=== PATIENT | female | born 1975 | race Caucasian/White ===

== ENCOUNTER 2019-12-04 21:04 | Emergency (ER) | payer OTHER, SELFPAY ==
--- NOTE | ~2019-12-04 | XR_ITS ---
EXAMINATION: XR ankle RT 2V DATE: 12/04/2019 22:05 INDICATION: Right ankle fracture status post reduction. TECHNIQUE: 2 views of right ankle were obtained. COMPARISON: Right ankle radiographs at 9:13 PM FINDINGS: There is an oblique fracture of distal fibula. The distal fracture fragment demonstrates 7 mm posterior displacement. There is a coronal fracture of posterior malleolus with 4 mm offset at the distal articular surface. There is an oblique fracture of medial malleolus. The distal fracture frag ment demonstrates 3 mm lateral displacement. Talar dome is normal. There is an enthesophyte at planta r aspect of calcaneal tuberosity. There is ankle soft tissue swelling. Cast material is noted. IMPRESSION: 1. Trimalleolar ankle fracture with interval improvement in alignment. Reviewed, dictated and finalized at location A.
--- NOTE | ~2019-12-04 | XR_ITS ---
XR ankle RT min 3V 12/04/2019 21:21 Indication: Status post fall. Right ankle pain. Procedure: 3 views right ankle Comparison: No prior studies for comparison. Findings: There is a displaced bimalleolar fracture. The distal fibular fracture is laterally displac ed and angulated. Medial malleolar fracture is laterally displaced there is possible posterior malleo lar fracture. There is posterior subluxation of the talus with respect to the tibia. Impression: 1: Displaced bimalleolar fracture. Reviewed, dictated and finalized at location A. Impression: 1: Displaced bimalleolar fracture.
[2019-12-04 21:03] VITALS: BP 134/84; PULSE 92; RESP 18; TEMP 36.7; O2SAT 100
--- NOTE | 2019-12-04 21:10 | ED.LOWEXIN ---
HPI - Extremity Injury (Lower) General Chief Complaint: Extremity Injury, Lower Stated Complaint: r ankle pain Time Seen by Provider: 12/04/19 21:08 Source: RN notes reviewed History of Present Illness HPI Narrative: Patient presents emergency department from home via EMS for right ankle pain. Patient states that she was walking to her car when she slipped and her right ankle twisted underneath her and she felt a pop. She states she that since that time she is been able to walk on the right leg with noted deformity. Patient denies any other trauma or injury. She denies any numbness or tingling of the extremity. Related Data Allergies Allergy/AdvReac Type Severity Reaction Status Date / Time acetaminophen Allergy Intermediate Itching Verified 10/24/18 17:17 hydrocodone Allergy Intermediate Itching Verified 10/24/18 17:17 morphine Allergy Intermediate Itching Verified 10/24/18 17:17 Review of Systems Review of Systems: Narrative: Gen.: Denies fevers or chills Musculoskeletal: See HPI Neuro: Denies numbness, tingling, weakness Skin: Denies rash Endo: Denies DM PMFSH Past Medical History Medical History (Updated 12/04/19 @ 22:25 by Reynaldo Heard DO) Patient denies significant medical history Social History Social History (Updated 12/04/19 @ 21:11 by Reynaldo Heard DO) Smoking packs per day: 0.5 Smoking cigarettes per day: 10.0 Exam Narrative: Exam Narrative: APPEARANCE: No acute distress, nontoxic, resting in bed Eyes: EOMI HEENT: Normocephalic, atraumatic, RESPIRATORY: No respiratory distress MUSCULOSKELETAl: Diffuse tenderness palpation of the right ankle with deformity noted, no tenderness of the foot or proximal tibia, dorsalis pedis pulse 2+, neurovascular intact NEURO: Awake and alert. Following commands, speech normal, no focal deficits SKIN:: Warm, dry. Normal Color no rash or lesions Course Course Emergency Course: Discussed with Dr. Park presentation work-up. He reviewed the patient's x-rays. States patient may be discharged at this time with follow-up as an outpatient Discussed with patient results of workup and diagnosis. Discussed need for follow-up with primary care, proper use of medication, and reasons to return to the emergency department. Patient understands and agrees to current treatment plan. Patient states that she is allergic to [place] but can take Tylenol 3 Vital Signs Vital signs: Vital Signs Temperature 98.0 F 12/04/19 21:03 Pulse Rate 92 12/04/19 21:03 Respiratory Rate 18 12/04/19 21:03 Blood Pressure 134/84 12/04/19 21:03 Pulse Oximetry 100 12/04/19 21:03 Temperature 98.0 F 12/04/19 21:03 Pulse Rate 83 12/04/19 21:42 Respiratory Rate 18 12/04/19 21:42 Blood Pressure 124/57 L 12/04/19 21:42 Pulse Oximetry 100 12/04/19 21:42 Procedures Orthopedic Fracture Reduction Fracture #1: Side: right Fracture Reduction Location: tibia (Trimalleolar fracture) Analgesia: procedural sedation Pre-Procedure Neuro Vascular Exam: normal Technique: direct manipulation Post Reduction X-rays Demonstrate: anatomical reduction Post-reduction neuro exam: intact Post-reduction vascular exam: intact Splint Applied: Yes Patient Tolerated Procedure: well Orthopedic Splinting/Casting Injury #1: Side: right Lower Extremity Injury Location: ankle Lower Extremity Immobilizer: posterior splint and stirrup splint Splint: customized in ED Pre-Procedure Neuro Vascular Exam: normal Post-Procedure Neuro Vascular Exam: normal Other Orthopedic Equipment: crutches MDM - Extremity Injury (Lower) Imaging Data Attestation: I personally reviewed and interpreted this imaging study as follows: My impression: Right ankle postreduction film shows reduction of fracture dislocation with trimalleolar fracture present Discharge Plan Discharge Clinical Impression: Closed
[2019-12-04 21:42] VITALS: BP 124/57; PULSE 83; RESP 18; O2SAT 100
--- NOTE | 2019-12-04 21:44 | PC.NURSE ---
ERP in room to reduce R ankle.
[2019-12-04 22:49] VITALS: BP 122/72; PULSE 78; RESP 18; O2SAT 98
== END 2019-12-04 22:54 | disposition home or self-care (01) ==
PROVIDERS: Emergency Provider Emergency Medicine
DX: S82.851A Displaced trimalleolar fracture of right lower leg, initial encounter for closed fracture (principal); F17.210 Nicotine dependence, cigarettes, uncomplicated; X50.9XXA Other and unspecified overexertion or strenuous movements or postures, initial encounter
CPT/HCPCS: 27818; 73600; 73610; 96374; 99285; J3010

== ENCOUNTER 2019-12-09 00:41 | Day surgery (SDC) | payer OTHER, SELFPAY ==
[2019-12-08 10:51] VITALS: BMI 35.0
[2019-12-09] VITALS (7 sets, daily range): BP systolic 106–137; BP diastolic 62–86; PULSE 71–97; RESP 12–18; TEMP 36.1–36.8; O2SAT 95–100
--- NOTE | ~2019-12-09 | XR_ITS ---
XR surgery orthopedic 12/09/2019 13:37 Indication: Intraoperative fixation right ankle Procedure: 3 fluoroscopic views right ankle Comparison: 12/06/2019 Findings: Status post intraoperative reduction of bimalleolar fracture. There is a fibular sideplate with 5 screws. Fibula in anatomic alignment. 2 lag screws transfixing medial malleolar fracture which is an anatomic alignment. Ankle mortise intact. Impression: 1: Anatomic alignment of bimalleolar fracture status post intraoperative fixation. Reviewed, dictated and finalized at location A. Impression: 1: Anatomic alignment of bimalleolar fracture status post intraoperative fixati on.
--- NOTE | 2019-12-09 08:20 | ECG_ITS ---
Measurements Intervals [place] Rate: 85 P: 42 TN: 136 QRS: 27 QRSD: 87 T: 34 QT: 381 QTc: 454 Interpretive Statements SINUS RHYTHM EARLY PRECORDIAL R/S TRANSITION BORDERLINE ST-T WAVE ABNORMALITY- ANTERIOR LEADS BASELINE ARTIFACT- V4-V5 BORDERLINE ECG Electronically Signed On 12-09-2019 11:38:11 CDT by Jasson Bowman D.O.
--- NOTE | 2019-12-09 08:35 | WPDANESEPPF ---
Anes - Initial Pre Proc Eval Procedure: Operation Date: 12/09/19 12:00 Proposed Procedures p Open Reduction Internal Fixation Right Ankle - Jose Eduardo Park MD Date/Time: 12/09/19 08:35 Surgeon: Jose Eduardo Park MD Pre Op Diagnosis: displaced trimalleolar fx right ankle Patient Data Age: 44 Gender: F Height: 1.73 m Weight: 104.5 kg Allergies Allergy/AdvReac Type Severity Reaction Status Date / Time hydrocodone Allergy Intermediate Itching Verified 12/08/19 10:36 morphine Allergy Intermediate Itching Verified 12/08/19 10:36 Home Medications Medication Instructions Recorded Confirmed Type ibuprofen [IBU] 600 mg PO Q6H PRN #20 tablet 12/04/19 12/08/19 Rx acetaminophen 300 mg-codeine 30 mg 1 tablet PO Q6H PRN #14 tablet 12/06/19 12/08/19 Rx tablet escitalopram oxalate 20 mg tablet 20 mg PO HS 12/07/19 12/08/19 History Patient hx anesthesia problems: none Family hx anesthesia problems: none PMFSH Past Medical History Medical History (Updated 12/09/19 @ 08:36 by Darrel Magana MD) Anxiety Depression Diarrhea Dizziness Fall from other slipping, tripping, or stumbling (12/04/19) Fracture dislocation of ankle GERD (gastroesophageal reflux disease) Headache High cholesterol Obesity Patient denies significant medical history Vertigo Vision abnormalities Surgical History Surgical History (Updated 12/07/19 @ 08:27 by Melina Crowell, RT(R)) History of Dr. Ellis History of salpingectomy Bilateral, Dr. 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 Questions were solicited and answers provided to the satisfaction of the patient/family/POA.
--- NOTE | 2019-12-09 08:40 | WPDHPUPDATE1 ---
History and Physical Update Update Date/Time: 12/09/19 08:40 History and Physical has been reviewed, including an updated exam of the patient. There are NO changes in the patient's condition. Risks, benefits, and alternatives have been discussed and questions answered. Patient agrees to proceed with procedure.
[2019-12-09] MEDS: LACTATED RINGERS 1,000 ML 30 ML IV CONT (10:30)
[2019-12-09] MEDS: IBUPROFEN IV 800 MG/200 ML 800 MG/200 ML BAG 400 MG IVPB (12:00)
[2019-12-09] MEDS: ceFAZolin 2 GM/D5W 50 ML 2 GM/50 ML BAG IVPB (12:27)
--- NOTE | 2019-12-09 14:16 | PM.PROC ---
Procedure Note - Detailed Date of procedure: 12/09/19 Pre-op diagnosis: displaced trimalleolar fx right ankle Post-op diagnosis: same Procedure performed: Open reduction internal fixation right ankle trimalleolar fracture Description of procedure: Operative indications: Patient is a 44year-old woman who sustained an injury to the right ankle. Radiographs show distal fibular fracture with displacement. Medial malleolus fracture with displacement and posterior malleolus fracture. Widening of the ankle mortise noted. Patient presents for operative treatment. Full discussion of the risks, benefits and alternatives of surgery was had with the patient. Questions answered. Patient verbalizes understanding and wishes to proceed. What was done: After informed consent, the operative extremity was marked in the preoperative holding area. Patient received intravenous antibiotics. Patient was then taken to the operating room and underwent general anesthesia by the anesthesia team. Positioned supine on the operating room table with a soft bump under the ipsilateral hip. A time-out was performed confirming the patient, site of the surgery, operative plan. Right Lower extremity then prepped and draped in the usual sterile surgical fashion using ChloraPrep skin solution. Foot and ankle exsanguinated and a thigh tourniquet inflated to 250 mmHg. Longitudinal incision made over the lateral ankle distal fibula with a 15 blade knife. Hemostasis controlled with electrocautery. Full-thickness soft tissue flaps developed and the fascia was incised in line with the skin incision. Fracture identified and cleared with a dental pick, irrigation and rongeur. Fracture reduced and held with bone-holding clamp. Image intensification confirmed reduction of the fracture and the ankle mortise. Fixation achieved with a 3.5 millimeter fully-threaded cortical screw placed in lag technique across the fracture. Neutralization with a lateral plate with unicortical screws distal to fracture and bicortical screws proximal to the fracture. Good alignment and stability of the fracture noted. Image intensification used to confirm reduction of the fracture and placement of the hardware. Medial side then addressed. Longitudinal incision made with a 15 blade knife over the medial malleolus fracture. Hemostasis controlled with electrocautery. Fascia incised in line with skin incision. Periosteum cleared from the medial malleolus fracture. Medial side of the joint inspected and noted to have mild amount of trauma to the chondral surface. Thorough irrigation of the ankle joint and suctioned out. Fracture reduced and provisionally pinned. Fixation achieved with 4.0 mm partially threaded cancellous screws x2 placed in cannulated screw fashion. Image intensification confirmed reduction of the fracture and placement of the hardware. Stress of the ankle performed with good stability of the ankle mortise in all directions. Posterior malleolus noted to be reduced and stable. Wounds thoroughly irrigated with antibiotic solution. Fascia repaired with 00 Vicryl interrupted suture. Subcutaneous tissue repaired with 000 Monocryl interrupted suture and Skin approximated with bakari. Sterile dressings applied followed by bulky dressing and splint. Patient awoken from anesthesia, extubated and taken to the recovery room in stable condition. All sponge, needle and instrument counts correct at the end of the case. Palpable dorsalis pedis pulse noted prior to dressing. Implants: Biomet 1/3 tubular 6 hole plate with 4.0 mm screws x2, 3.5 mm screws x3. 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
== END 2019-12-09 15:45 | disposition home or self-care (01) ==
PROVIDERS: Visit Provider Orthopaedic Surgery
PROC: (CPT 27822; principal; 2019-12-09 12:00)
DX: S82.851A Displaced trimalleolar fracture of right lower leg, initial encounter for closed fracture (principal); E78.00 Pure hypercholesterolemia, unspecified; K21.9 Gastro-esophageal reflux disease without esophagitis; F41.8 Other specified anxiety disorders; W01.0XXA Fall on same level from slipping, tripping and stumbling without subsequent striking against object, initial encounter; F17.210 Nicotine dependence, cigarettes, uncomplicated; E66.9 Obesity, unspecified; Z68.36 Body mass index [BMI] 36.0-36.9, adult
CPT/HCPCS: 27822; 93005; C1713; J0690; J1100; J1741; J2250; J2405; J2704; J3010; J7120

== ENCOUNTER 2020-06-09 15:38 | Emergency (ER) | payer OTHER, SELFPAY ==
--- NOTE | ~2020-06-09 | XR_ITS ---
XR hand RT min 3V DATE: 06/09/2020 16:11 INDICATION: Right hand injury, pain at fifth metacarpal area TECHNIQUE: 3 views COMPARISON: None FINDINGS: No fracture or dislocation, periosteal reaction or bone destruction. IMPRESSION: Negative Reviewed, dictated and finalized at location A. IMPRESSION: Negative
[2020-06-09 15:46] VITALS: BP 139/85; PULSE 98; RESP 18; TEMP 36.8; O2SAT 98
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
== END 2020-06-09 16:34 | disposition home or self-care (01) ==
PROVIDERS: Emergency Provider Nurse Practitioner Family; PCP Family Medicine
DX: S63.91XA Sprain of unspecified part of right wrist and hand, initial encounter (principal); S66.911A Strain of unspecified muscle, fascia and tendon at wrist and hand level, right hand, initial encounter; V49.40XA Driver injured in collision with unspecified motor vehicles in traffic accident, initial encounter; F17.210 Nicotine dependence, cigarettes, uncomplicated; K21.9 Gastro-esophageal reflux disease without esophagitis; E78.00 Pure hypercholesterolemia, unspecified; F41.9 Anxiety disorder, unspecified; F32.9 Major depressive disorder, single episode, unspecified; E66.9 Obesity, unspecified; Z68.35 Body mass index [BMI] 35.0-35.9, adult
CPT/HCPCS: 73130; 99213; G0463

== ENCOUNTER 2021-03-25 11:30 | Outpatient (CLI) | payer OTHER, SELFPAY ==
--- NOTE | 2021-03-25 11:30 | ECG_ITS ---
Measurements Intervals [place] Rate: 76 P: 50 VA: 139 QRS: 23 QRSD: 93 T: 30 QT: 392 QTc: 443 Interpretive Statements SINUS RHYTHM LOW QRS VOLTAGE IN PRECORDIAL LEADS BASELINE ARTIFACT- II, III, AVL BORDERLINE ECG Electronically Signed On 03-25-2021 12:40:57 CDT by Jasson Bowman D.O.
== END 2021-03-25 11:31 | disposition home or self-care (01) ==
LOC: ANHSURGERY 11:34
PROVIDERS: PCP Family Medicine; Visit Provider Orthopaedic Surgery
DX: F17.200 Nicotine dependence, unspecified, uncomplicated (principal); Z01.818 Encounter for other preprocedural examination; R94.31 Abnormal electrocardiogram [ECG] [EKG]
CPT/HCPCS: 93005

== ENCOUNTER 2021-03-28 00:41 | Day surgery (SDC) | payer OTHER, SELFPAY ==
[2021-03-21 15:07] VITALS: BMI 36.8
--- NOTE | 2021-03-27 15:00 | WPDANESEPPF ---
Anes - Initial Pre Proc Eval Procedure: Operation Date: 03/28/21 07:30 Proposed Procedures p Right Ankle Arthroscopy with Debridement - Jose Eduardo Park MD s Removal Hardware Right Ankle - Jose Eduardo Park MD Date/Time: 03/27/21 15:00 Surgeon: Jose Eduardo Park MD Pre Op Diagnosis: Right Ankle Pain, Right Ankle Painful Hardware Patient Data Age: 45 Gender: F Height: 1.73 m Weight: 110 kg Allergies Allergy/AdvReac Type Severity Reaction Status Date / Time hydrocodone Allergy Intermediate Itching Verified 03/21/21 14:57 morphine Allergy Intermediate Itching Verified 03/21/21 14:57 Home Medications Medication Instructions Recorded Confirmed Type ibuprofen 600 mg tablet 600 mg PO Q6H PRN #60 tablet 12/14/19 03/21/21 Rx citalopram [Celexa] 40 mg PO HS 03/21/21 03/21/21 History lamotrigine 100 mg PO HS 03/21/21 03/21/21 History Patient hx anesthesia problems: none Family hx anesthesia problems: none PMFSH Past Medical History Medical History (Updated 03/19/21 @ 12:16 by Jose Eduardo Park MD) Anxiety Depression Diarrhea Dizziness Fall from other slipping, tripping, or stumbling (12/04/19) Fracture dislocation of ankle GERD (gastroesophageal reflux disease) Headache High cholesterol Obesity Painful orthopaedic hardware Patient denies significant medical history Traumatic arthritis of left ankle Vertigo Vision abnormalities Surgical History Surgical History History of Dr. Ellis History of salpingectomy Bilateral, Dr. 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 [employer] Gender identity (if verbalized by the patient): Female Anes - Eval Final PreProcedure Day of Procedure 03/27/21 15:00 Patient weight: obese Heart: regular rate and rhythm Lungs: clear to auscultation and normal air movement Airway: Mallampati scale class II Neurological: alert and oriented Last oral intake: >/= 8 hours ASA classification: III Emergent: no Anesthetic plan: proceed Anesthesia type and monitoring: general LMA Informed Consent: The patient's anesthetic plan and its attendant risks and benefits were discussed with the patient/family/POA. Questions were solicited and answers provided to the satisfaction of the patient/family/POA.
[2021-03-28] VITALS (8 sets, daily range): BP systolic 104–126; BP diastolic 54–75; PULSE 63–83; RESP 10–20; TEMP 36.6–36.9; O2SAT 94–100
--- NOTE | ~2021-03-28 | XR_ITS ---
EXAMINATION: XR surgery orthopedic DATE: 03/28/2021 08:24 INDICATION: Orthopedic instrumentation removal at the right ankle TECHNIQUE: 4 fluoroscopic spot images of the ankle were obtained during procedure performed by Dr. Thaddeus santillan. Radiologist was not present for the imaging or procedure. The amount of fluoroscopy time used during this procedure was 0.3 minutes. COMPARISON: 03/19/2021 FINDINGS: Intravenous internal fixation for an old healed trimalleolar fracture of the right ankle which is fix ed with a lateral plate and screws at the lateral malleolus and with 2 cannulated lag screws at the m edial malleolus. The fracture is healed in essentially anatomic alignment with a congruent ankle mort ise. Subsequent images demonstrate complete removal of the 2 legs screws at the medial malleolus with residual lucent screw tracks. The lateral plate and screws remain unchanged. No acute fracture. IMPRESSION: 1. Old healed internally fixed trimalleolar fracture in essentially anatomic alignment with fluorosco py utilized for removal of a pair of medial malleolar fixation screws. Reviewed, dictated and finalized at location A. IMPRESSION: 1. Old healed internally fixed trimalleolar fracture in essentially anatomic al ignment with fluoroscopy utilized for removal of a pair of medial malleolar fix ation screws.
--- NOTE | 2021-03-28 06:44 | WPDHPUPDATE1 ---
History and Physical Update Update Date/Time: 03/28/21 06:44 History and Physical has been reviewed, including an updated exam of the patient. There are NO changes in the patient's condition. Risks, benefits, and alternatives have been discussed and questions answered. Patient agrees to proceed with procedure.
[2021-03-28] MEDS: ACETAMINOPHEN 500 MG TABLET 1000 MG PO (07:15)
[2021-03-28] MEDS: KETOROLAC 15 MG/ML VIAL (*BKC) IV PUSH (07:15)
[2021-03-28] MEDS: LACTATED RINGERS 1,000 ML 30 ML IV CONT (07:16)
[2021-03-28] MEDS: ceFAZolin 2 GM/D5W 50 ML 2 GM/50 ML BAG IVPB (07:34)
--- NOTE | 2021-03-28 08:46 | SUR.PREOP ---
PT DOES NOT NEED CRUTCH TRAINING POST OP; WILL BE USING A SCOOTER POST OP. PT SPOKE W/ DR. GARCIA IN PREOP AREA RE:THIS AND GIVEN CONSENT TO USE SCOOTER POSTOP.
--- NOTE | 2021-03-28 09:26 | P.OP_ITS ---
Procedure Note - Detailed Date of Procedure 03/28/21 Pre-op Diagnosis Right Ankle Pain, Right Ankle Painful Hardware Post-op Diagnosis same Procedure Performed Right ankle arthroscopy with debridement, removal of hardware Surgeon Jose Eduardo Park MD Jr. 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 She has pain over the medial malleolus internal fixation. She also has anterior ankle pain and evidence of posttraumatic changes. She presents now for operative treatment. Findings Healed medial and lateral malleolus fractures. 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 Loose body in the anterolateral ankle joint with grade 3 degenerative changes lateral gutter. Grade 2 chondromalacia of the anterior talus. Anterior synovitis. Syndesmosis stable. Description of Procedure What was done: Patient identified in the preoperative holding. Informed consent given. Operative extremity marked. Patient received intravenous antibiotics. Patient brought to the operating room where underwent general anesthetic by anesthesia team. Positioned supine on operating room table. Time-out performed confirming the patient, site of the surgery and the plan. Right leg was then positioned with a posterior thigh roberto with the hip and knee flexed. Right ankle prepped and draped usual sterile surgical fashion using ChloraPrep skin solution. Hardware was addressed 1st. Utilizing the previous medial incision the distal aspect was made again with a 15 blade knife. Hemostasis controlled electrocautery. Dissection carried down of the medial malleolus. Two screws were identified. These were cannulated and guidepins were able to be placed in them. The screws removed. Screw holes were debrided with a curette. This was then thoroughly irrigated. Fluoroscopy confirmed removal of the hardware from the medial aspect. Soft tissue closed with 3 Monocryl interrupted suture. Skin approximated with 4 0 nylon running suture. The ankle arthroscopy was then performed. Ankle joint was infiltrated with saline from the anteromedial position. Eleven blade knife then used to incise the skin. Blunt penetration capsule. Camera and inflow were started. The ankle joint was inspected and the above findings were noted. Anterolateral working portal was stabbed wished with an 18 gauge needle for positioning followed by an 11 blade knife for the skin and blunt penetration capsule. 2.7 mm shaver was introduced and a synovectomy of the anterior joint was performed. Debridement of the medial lateral gutter were performed with the shaver. Grasper was then introduced and used to remove the loose body from the anterolateral portion of the joint which was just in for of the distal fibula. Soft tissues and smoothed with the shaver. Arthroscopic Wand was then introduced for hemostasis as well as to smooth the soft tissue and perform chondroplasty of the talar dome. 100 cc of irrigant was run through the ankle joint and suctioned out. Instruments removed. Skin closed with 4 nylon interrupted suture. Sterile dressing applied. The patient was then woken from anesthesia, extubated and taken to the recovery room in stable condition. All sponge, needle, instrument counts were correct at the end of the case. Estimated Blood Loss -5.0 Tourniquet Time 0 Drains No Packing No Pathology none sent Complications None Condition stable Disposition PACU
== END 2021-03-28 10:30 | disposition home or self-care (01) ==
PROVIDERS: PCP Family Medicine; Visit Provider Orthopaedic Surgery
PROC: (CPT 20680; principal; 2021-03-28 07:30)
PROC: (CPT 20680; 2021-03-28 07:30)
DX: T84.84XA Pain due to internal orthopedic prosthetic devices, implants and grafts, initial encounter (principal); M25.571 Pain in right ankle and joints of right foot; Z87.81 Personal history of (healed) traumatic fracture; E78.00 Pure hypercholesterolemia, unspecified; K21.9 Gastro-esophageal reflux disease without esophagitis; F41.8 Other specified anxiety disorders; F17.210 Nicotine dependence, cigarettes, uncomplicated; F12.90 Cannabis use, unspecified, uncomplicated; E66.9 Obesity, unspecified; Z68.37 Body mass index [BMI] 37.0-37.9, adult; Y83.8 Other surgical procedures as the cause of abnormal reaction of the patient, or of later complication, without mention of misadventure at the time of the procedure
CPT/HCPCS: 20680; 29897; A9270; J0690; J1040; J1100; J1885; J2250; J2405; J2704; J3010; J7120

== ENCOUNTER 2022-12-27 16:17 | Emergency (ER) | payer OTHER, SELFPAY ==
[2022-12-27 16:29] VITALS: BP 137/62; PULSE 93; RESP 16; TEMP 37.6; O2SAT 98
[2022-12-27 16:30] VITALS: BP 137/62; PULSE 93; RESP 16; TEMP 37.6; O2SAT 98
--- NOTE | 2022-12-27 16:38 | ED.URI ---
HPI - URI/Sore Throat General Chief Complaint: Upper Respiratory Infection Stated Complaint: 3 weeks cough, sore throat, pink eye Time Seen by Provider: 12/27/22 16:39 Source: patient and RN notes reviewed Mode of arrival: ambulatory Limitations: no limitations History of Present Illness HPI Narrative: 47-year-old female presents with concern for 3 week history sinus drainage, cough, sore throat. Reports she recently be and having redness, irritation, drainage from her left eye. She reports she tried to ?wait it out? but decided to be evaluated. MD elicited complaint: cough and sore throat Related Data Home Medications Medication Instructions Recorded Confirmed citalopram 40 mg tablet (Celexa) 40 mg PO HS 03/21/21 12/27/22 Allergies Allergy/AdvReac Type Severity Reaction Status Date / Time hydrocodone Allergy Intermediate Itching Verified 12/27/22 16:30 morphine Allergy Intermediate Itching Verified 12/27/22 16:30 Review of Systems Review of Systems: CONSTITUTIONAL: Denies malaise, chills, sweats, or fever. EYES: Denies visual changes. Reports left eye redness, irritation, discharge. ENT: Reports rhinorrhea, congestion, and sore throat. CARDIOVASCULAR: Denies chest pain, palpitations, or edema. RESPIRATORY: Reports cough. Denies dyspnea. GASTROINTESTINAL: Denies abdominal pain, nausea, vomiting, diarrhea SKIN: Denies rash or itching. MUSCULOSKELETAL: Denies myalgia. NEUROLOGIC: Denies headache. All systems reviewed & are unremarkable except as noted in HPI and below PMFSH Past Medical History Medical History Anxiety Depression Diarrhea Dizziness Encounter for Postoperative Care Fall from other slipping, tripping, or stumbling (12/04/19) Fracture dislocation of ankle GERD (gastroesophageal reflux disease) Headache High cholesterol Obesity Painful orthopaedic hardware Patient denies significant medical history Traumatic arthritis of left ankle Vertigo Vision abnormalities Surgical History Surgical History History of Dr. Ellis History of salpingectomy Bilateral, Dr. 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 There is no relevant family history pertinent to the presenting complaint Exam Narrative: GENERAL: Well-appearing, well-nourished, and in no acute distress. HEAD: Normocephalic EYES: PERRLA, left sclera and conjunctivae injected, scant yellow drainage noted ENT: Nares clear, turbinates edematous and erythematous. Mucous membranes moist. TM pearly neal with dull light reflex bilaterally; no tragal tenderness. Oropharynx erythematous without lesions. Tonsils not enlarged and without exudate, no drooling, no hoarseness, no trismus, uvula midline. NECK: Supple. No lymphadenopathy CHEST: Clear to auscultation, breath sounds equal. No wheezing, rhonchi, rales, or stridor. No respiratory distress, speaks in full sentences. Cough noted HEART: Regular rate and rhythm. No murmur heard. SKIN: Warm, dry, no rash. NEURO: Alert and oriented x3. PSYCH: Normal mood and affect Course Course Emergency Course: Patient is aware
== END 2022-12-27 16:50 | disposition home or self-care (01) ==
PROVIDERS: Emergency Provider Nurse Practitioner; PCP Family Medicine
DX: J40 Bronchitis, not specified as acute or chronic (principal); H10.9 Unspecified conjunctivitis; F17.210 Nicotine dependence, cigarettes, uncomplicated
CPT/HCPCS: 99213; G0463

== ENCOUNTER 2023-08-03 17:18 | Emergency (ER) | payer OTHER, SELFPAY ==
[2023-08-03 17:34] VITALS: BP 133/79; PULSE 114; RESP 16; TEMP 38.8; O2SAT 99
--- NOTE | 2023-08-03 17:39 | ED.URI ---
HPI - URI/Sore Throat General Chief Complaint: Upper Respiratory Infection Stated Complaint: left side neck robert,headache,bodyaches Time Seen by Provider: 08/03/23 18:10 Source: patient and RN notes reviewed Mode of arrival: ambulatory Limitations: no limitations History of Present Illness HPI Narrative: 47-year-old female presents with concern for 2 week history of left-sided lymph node tenderness, sinus pain and pressure. She denies sinus drainage. She reports she started having worsening left-sided lymph node pain today with fever. MD elicited complaint: sore throat Related Data Home Medications Medication Instructions Recorded Confirmed citalopram 40 mg tablet (Celexa) 40 mg PO HS 03/21/21 08/03/23 Allergies Allergy/AdvReac Type Severity Reaction Status Date / Time hydrocodone Allergy Intermediate Itching Verified 08/03/23 17:36 morphine Allergy Intermediate Itching Verified 08/03/23 17:36 Review of Systems Review of Systems: CONSTITUTIONAL: Reports malaise. Denies chills, sweats, or fever. EYES: Denies visual changes, redness, or discharge. ENT: Reports rhinorrhea,otalgia and sore throat. Reports sinus congestion and pain, left lymph node tenderness CARDIOVASCULAR: Denies chest pain, palpitations, or edema. RESPIRATORY: Denies cough. Denies dyspnea. GASTROINTESTINAL: Denies abdominal pain, nausea, vomiting, diarrhea SKIN: Denies rash or itching. MUSCULOSKELETAL: Denies myalgia. NEUROLOGIC: Denies headache. All systems reviewed & are unremarkable except as noted in HPI and below PMFSH Past Medical History Medical History Anxiety Depression Diarrhea Dizziness Encounter for Postoperative Care Fall from other slipping, tripping, or stumbling (12/04/19) Fracture dislocation of ankle GERD (gastroesophageal reflux disease) Headache High cholesterol Obesity Painful orthopaedic hardware Patient denies significant medical history Traumatic arthritis of left ankle Vertigo Vision abnormalities Surgical History Surgical History History of Dr. Ellis History of salpingectomy Bilateral, Dr. 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 There is no relevant family history pertinent to the presenting complaint Exam Narrative: GENERAL: Well-appearing, well-nourished, and in no acute distress. HEAD: Normocephalic EYES: PERRLA, conjunctivae clear ENT: Nares clear. Mucous membranes moist. Sinus tenderness. TM pearly neal with dull light reflex bilaterally; no tragal tenderness. Oropharynx not erythematous without lesions. Tonsils not enlarged and without exudate, no drooling, no hoarseness, no trismus, uvula midline. NECK: Supple. Left cervical lymphadenopathy CHEST: Clear to auscultation, breath sounds equal. No wheezing, rhonchi, rales, or stridor. No respiratory distress, speaks in full sentences. HEART: Regular rate and rhythm. No murmur heard. SKIN: Warm, dry, no rash. NEURO: Alert and oriented x3. PSYCH: Normal mood and affect Course Course Emergency Course: Patient is aware of diagnosis, understands and agrees to treat
== END 2023-08-03 18:21 | disposition home or self-care (01) ==
PROVIDERS: Emergency Provider Nurse Practitioner; PCP Family Medicine
DX: J32.9 Chronic sinusitis, unspecified (principal); F17.210 Nicotine dependence, cigarettes, uncomplicated; K21.9 Gastro-esophageal reflux disease without esophagitis; E78.00 Pure hypercholesterolemia, unspecified; E66.9 Obesity, unspecified; Z68.36 Body mass index [BMI] 36.0-36.9, adult; M19.172 Post-traumatic osteoarthritis, left ankle and foot; T14.90XS Injury, unspecified, sequela; X58.XXXS Exposure to other specified factors, sequela; F41.9 Anxiety disorder, unspecified; F32.A Depression, unspecified
CPT/HCPCS: 99213; G0463

== ENCOUNTER 2025-01-02 17:03 | Emergency (ER) | payer OTHER, SELFPAY ==
[2025-01-02 17:25] VITALS: BP 143/78; PULSE 80; RESP 18; TEMP 36.6; O2SAT 99
[2025-01-02 17:40] LABS: EDSTREPNEGPOS1 Negative (Negative)
--- NOTE | 2025-01-02 17:47 | ED_ITS ---
HPI - URI/Sore Throat General Chief Complaint: Upper Respiratory Infection Stated Complaint: eye irritation Time Seen by Provider: 01/02/25 17:30 Source: patient and RN notes reviewed Mode of arrival: ambulatory Limitations: no limitations History of Present Illness HPI Narrative: 49-year-old female presents [facility] complaining of upper respiratory symptoms for approximately 1 week. Patient stated started with sinus pressure and congestion. She stated on Thursday her symptoms got suddenly worse and she developed a sore throat, dry hacking cough, worsening sinus pressure. Patient states today she also noticed that her left eye and has developed increased redness and swelling along with discharge. She denies any vision changes, or blurry vision. Denies any chest pain or shortness of breath, fever, body aches, chills, nausea, vomiting, diarrhea. Patient also reports itchy ears. Patient has been taking DayQuil NyQuil [id number] with some relief. Related Data Home Medications ?Medication ?Instructions ?Recorded ?Confirmed ?Last Taken ?Type citalopram 40 mg tablet (Celexa) 40 mg PO HS 03/21/21 01/02/25 Unknown History Allergies Allergy/AdvReac Type Severity Reaction Status Date / Time hydrocodone Allergy Intermediate Itching Verified 01/02/25 17:24 morphine Allergy Intermediate Itching Verified 01/02/25 17:24 Review of Systems Review of Systems: CONSTITUTIONAL: Denies fever, body aches, chills, or sweats. EYES: Denies visual changes, positive for left eye redness and discharge. ENT: Denies rhinorrhea, or otalgia. Positive for congestion, sore throat, ear fullness, itchy ears, voice hoarseness, sinus pressure. CARDIOVASCULAR: Denies chest pain, palpitations, or edema. RESPIRATORY: Positive for dry cough, negative for dyspnea. GASTROINTESTINAL: Denies abdominal pain, nausea, vomiting, or diarrhea. GENITOURINARY: Denies dysuria or hematuria. SKIN: Denies rash or itching. MUSCULOSKELETAL: Denies back pain, joint pain, or myalgia. NEUROLOGIC: Denies headache, numbness, or weakness. PSYCHIATRIC: Denies anxiety or depression. All other systems reviewed are negative, except as documented in HPI. [facility] Past Medical History Medical History Encounter for Postoperative Care Painful orthopaedic hardware Traumatic arthritis of left ankle Obesity Vision abnormalities Vertigo Anxiety Depression Diarrhea GERD (gastroesophageal reflux disease) High cholesterol Dizziness Headache Fall from other slipping, tripping, or stumbling (12/04/19) Fracture dislocation of ankle Patient denies significant medical history Surgical History Surgical History History of salpingectomy Bilateral, Dr. Joseph History of Dr. 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 There is no relevant family history pertinent to the patient complaint. Exam Narrative: GENERAL: This is a well-nourished, well-developed adult, in no apparent distress. They are non ill-appearing, nontoxic appearing. HEAD: normocephalic, atraumatic. EYES: Right eye: Sclera clear/white. Conjunctiva normal. Left eye: Sclera clear/white. Conjunctivae injected with exudate present. Upper and lower Eyelids are normal bilaterally. Vision is grossly intact bilaterally. Extraocular movements intact bilaterally EARS: External ears normal, left auditory canal without swelling or drainage, foreign body present. Foreign body appears to be here follicle. Right auditory canal clear without drainage or swelling, or redness. TMs normal without perforation bilaterally. Hearing grossly intact. NOSE: External nose normal with no obvious nasal discharge, nasal turbinates erythematous, no rhinorrhea. Sinus tenderness to palpation to the frontal maxillary sinuses. THROAT: Mucous membranes moist, posterior pharynx erythemic without swelling. Uvula midline. Postnasal drip present NECK: Neck supple, non-tender without lymphadenopathy, masses or thyromegaly. CARDIOVASCULAR: Regular rate and rhythm without murmurs, gallops, or rubs. RESPIRATORY: Clear to auscultation. Breath sounds equal bilaterally. No wheezes, rales, or rhonchi. SKIN: warm, Dry, intact with no suspicious lesions or rash, good texture and turgor. NEURO: awake, alert, and oriented to person, place and time. There were no obvious focal neurologic abnormalities. EXTREMITIES: No joint tenderness, effusion, or edema noted. BACK: Nontender without deformity. No CVA tenderness. Course Course Emergency Course: Portions of this record may have been created with voice recognition software Level of Care: Express Care Visit Vital Signs Vital signs: Vital Signs Temperature 98 F 01/02/25 17:25 Pulse Rate 80 01/02/25 17:25 Respiratory Rate 18 01/02/25 17:25 Blood Pressure 143/78 H 01/02/25 17:25 Pulse Oximetry 99 01/02/25 17:25 Oxygen Delivery Room Air 01/02/25 17:25 Temperature 98 F 01/02/25 17:25 Pulse Rate 80 01/02/25 17:25 Respiratory Rate 18 01/02/25 17:25 Blood Pressure 143/78 H 01/02/25 17:25 Pulse Oximetry 99 01/02/25 17:25 Oxygen Delivery Room Air 01/02/25 17:25 Reviewed Procedures FB Removal Ear Foreign Body #1: Foreign Body Removal Date: 01/02/25 Foreign Body Removal Time: 17:45 Location: ear canal (L) Foreign Body Suspected: other (Single hair follicle) TM intact pre-procedure: yes Foreign Body Removed: yes Foreign Body Removal Technique: irrigation Tympanic Membrane Intact Post Procedure: Yes Patient Tolerated Procedure: well Complications: none Additional Comments: Hair follicle removed 3 irrigation, patient tolerated procedure well. Patient believes is likely cat hair from her pets at home. MDM - URI/Sore Throat MDM Narrative Medical decision making narrative: Rapid strep negative. Throat culture pending. Successful ear irrigation performed left auditory canal to remove foreign body. It appears that it was a single hair follicle in patient's left auditory canal. Patient believes that it is likely from her cat at home. Patient tolerated procedure well without complication. Given patient's sudden worsening symptoms it is likely that she has developed a bacterial sinusitis. Will treat empirically with Augmentin. It also appears the patient has developed a bacterial conjunctivitis to the left eye. Will treat with antibiotic eyedrops. Discussed physical exam findings. Advised supportive measures and signs/symptoms to go to the ER. Pt is appropriate for outpt treatment and f/u. Differential Diagnosis Differential diagnosis: Likely upper respiratory infection, sinusitis and other (Conjunctivitis) Lab Data Labs: Lab Results 01/02/25 Range/Units 17:38 POC Grp A Strep Screen Negative (Negative) Critical Care Time Critical Care Time Critical Care Time: No Discharge Plan Discharge Clinical Impression: Sinusitis Qualifiers: Sinusitis location: unspecified location Chronicity: acute Recurrence: non- recurrent Qualified Code(s): J01.90 - Acute sinusitis, unspecified Conjunctivitis Qualifiers: Conjunctivitis type: acute Acute conjunctivitis type: bacterial Laterality: left Qualified Code(s): H10.32 - Unspecified acute conjunctivitis, left eye Patient Disposition: Home Condition: Stable Instructions: Antibiotic Form, Sinusitis (ED), Conjunctivitis (ED) Additional Instructions: Rapid strep was negative. A throat culture will be sent off in you will be contacted if it is positive. It is likely that you have developed a bacterial sinusitis. Also appears a of a bacterial conjunctivitis to her left eye. The left ear canal was irrigated and hair follicle was removed successfully. Take the antibiotic eyedrops as directed. Take the antibiotics as directed and complete the course even if you start to feel better. You may use a Neti pot saline rinse 3 times a day Luke warm distilled water. Take benzonatate as needed for cough. Continue to take Tylenol or Motrin for pain. Use a humidifier or vaporizer at night. Drink plenty of water. 8-10 glasses per day. Use flonase 2 times per day for 5 days then as needed Take mucinex 2 times per day and be sure to take with 8oz of water. Follow up with Primary provider if not getting better. Return to Express [facility] or go to the ER for new or worsening symptoms. Patient Language: Peruvian Prescriptions: New amoxicillin-pot clavulanate 875-125 mg tablet 1 tablet PO Q12H 7 Days Qty: 14 0RF polymyxin B sulf-trimethoprim 10,000 unit- 1 mg/mL drops 1 drp LEFT EYE Q3H 7 Days Qty: 10 0RF Rx Instructions: while awake; do not exceed 6 doses in 24 hours benzonatate 100 mg capsule 100 mg PO TID PRN (Reason: cough) 3 Days Qty: 20 0RF No Action citalopram [Celexa] 40 mg Tablet 40 mg PO HS Follow-up/Referrals: Lizbet,Reynaldo Hicks MD [Primary Care Provider] - Time of Disposition: 17:49
== END 2025-01-02 18:00 | disposition home or self-care (01) ==
PROVIDERS: PCP Family Medicine
DX: J01.90 Acute sinusitis, unspecified (principal); H10.32 Unspecified acute conjunctivitis, left eye; T16.2XXA Foreign body in left ear, initial encounter; W44.8XXA Other foreign body entering into or through a natural orifice, initial encounter; F17.210 Nicotine dependence, cigarettes, uncomplicated; E66.9 Obesity, unspecified; Z68.37 Body mass index [BMI] 37.0-37.9, adult; K21.9 Gastro-esophageal reflux disease without esophagitis; E78.00 Pure hypercholesterolemia, unspecified; F41.9 Anxiety disorder, unspecified; F32.A Depression, unspecified; F12.90 Cannabis use, unspecified, uncomplicated
CPT/HCPCS: 87081; 87880; 99213; A9270; G0463